=== PATIENT | male | born 1965 | race Caucasian/White ===

== ENCOUNTER → 2016-09-11 | Outpatient (CLI) | payer BC ==
--- NOTE | 2016-09-11 16:42 | REP ---
CHEST, TWO VIEWS: Two views of the chest are performed and compared to prior study of 03/25/2007. There is mild bibasilar interstitial fibrosis. There is no acute infiltrate. The heart is normal in size. The mediastinal silhouette is unremarkable and unchanged. Visualized osseus structures are unremarkable. IMPRESSION: Stable chronic interstitial fibrosis. No acute infiltrate. Signed by Jamarcus Moreno MD 09/11/2016 04:44 P
[2016-09-11 19:57] LABS: ALBUMIN 3.9 GM/DL (3.2-5.2); ALKALINE PHOSPHATASE 90 U/L (45-117); ALT/SGPT 40 U/L (12-78); ANION GAP 7 MEQ/L (8-16); AST/SGOT 19 U/L (15-37); BILIRUBIN,DIRECT 0.2 MG/DL (0.0-0.2); BILIRUBIN,TOTAL 0.7 MG/DL (0.2-1.0); BLOOD UREA NITROGEN 15 MG/DL (7-18); CALCIUM LEVEL 8.5 MG/DL (8.5-10.1); CARBON DIOXIDE LEVEL 30 MEQ/L (21-32); CHLORIDE LEVEL 100 MEQ/L (98-107); CREATININE FOR GFR 1.16 MG/DL (0.70-1.30); FREE T4 1.24 NG/DL (0.76-1.46); GLOMERULAR FILTRATION RATE > 60.0 (>56); GLUCOSE, FASTING 78 MG/DL (70-105); PHOSPHORUS LEVEL 2.7 MG/DL (2.5-4.9); POTASSIUM SERUM 4.3 MEQ/L (3.5-5.1); SODIUM LEVEL 137 MEQ/L (136-145); TOTAL PROTEIN 6.9 GM/DL (6.4-8.2)
[2016-09-11 20:11] LABS: MEAN CORPUSCULAR HEMOGLOBIN 31.2 pg (27.0-33.0); MEAN CORPUSCULAR VOLUME 97.4 fl (80.0-96.0); WHITE BLOOD COUNT 10.4 K/mm3 (4.0-10.0)
[2016-09-11 20:35] LABS: BANDS 1 % (< 11); EOSINOPHILS 4 % (0-5)
== END ==
LOC: M WUC 15:28
PROVIDERS: ATTEND Physician Assistant
DX: R60.0 Localized edema (principal); J84.9 Interstitial pulmonary disease, unspecified